=== PATIENT | female | born 1970 | race Caucasian/White ===

== ENCOUNTER 2017-07-15 16:24 | Emergency (ER) | END 2017-07-15 19:38 | disposition home or self-care (01) ==

== ENCOUNTER 2017-09-06 23:08 | Emergency (ER) | END 2017-09-07 05:30 | disposition home or self-care (01) ==

== ENCOUNTER 2017-09-17 11:52 | Emergency (ER) | END 2017-09-17 14:26 | disposition home or self-care (01) ==

== ENCOUNTER 2017-10-01 14:31 | Emergency (ER) | END 2017-10-01 17:44 | disposition home or self-care (01) ==